=== PATIENT | female | born 1955 | race Caucasian/White ===

== ENCOUNTER 2017-06-04 09:55 | Day surgery (SDC) | payer BC ==
[2017-06-04] VITALS (13 sets, daily range): BP systolic 82–131; BP diastolic 50–74; PULSE 75–98; RESP 17–31; Ht 157.5 cm; Wt 84.0 kg
[~2017-06-04] VITALS: Ht 157.5 cm; Wt 84.0 kg
[2017-06-04 10:54] LABS: BASOPHILS % 0.3 % (0.0-2.0); EOSINOPHILS % 0.6 % (0.0-7.0); HEMATOCRIT 38.7 % (37.0-47.0); HEMOGLOBIN 13.1 g/dl (12.0-16.0); LYMPHOCYTES # 1.2 10^3/ul (0.8-2.9); LYMPHOCYTES % 17.3 % (15.0-51.0); MEAN CORPUSCULAR HEMOGLOBIN 32.6 pg (29.0-33.0); MEAN CORPUSCULAR HGB CONC 33.9 g/dl (32.0-37.0); MEAN CORPUSCULAR VOLUME 96.3 fl (82.0-101.0); MEAN PLATELET VOLUME 9.6 fl (7.4-10.4); MONOCYTE # 0.4 10^3/ul (0.3-0.9); MONOCYTES % 6.6 % (0.0-11.0); NEUTROPHILS % 74.9 % (39.0-77.0); PLATELET COUNT 256 10^3/UL (140-415); RED BLOOD COUNT 4.02 10^6/ul (4.20-5.40); RED CELL DISTRIBUTION WIDTH 12.2 % (11.5-14.5); WHITE BLOOD COUNT 6.7 10^3/ul (4.8-10.8)
--- NOTE | 2017-06-04 11:15 | RADRPT ---
PROCEDURE: XR Chest 1 View. CLINICAL INDICATION: Abnormal breath sounds, preop. TECHNIQUE: AP view of the chest was obtained. COMPARISON: None. FINDINGS: The heart size is within normal limits. Calcified atherosclerosis is noted in the aorta. Subsegment al atelectasis is noted in the bilateral lower lungs. No consolidations are identified. No pneumoth orax is seen. Surgical clips are identified in the bilateral axilla. The osseous structures appear intact. IMPRESSION: Calcified atherosclerosis in the aorta. Subsegmental atelectasis in the bilateral lower lungs. RPTAT: AA .Nestor Lala MD, Date Time Electronically viewed and signed by .Nestor Lala MD, on 06/04/2017 11:14 .P/
[2017-06-04 11:24] LABS: ALBUMIN 3.8 g/dl (3.3-4.9); ALBUMIN/GLOBULIN RATIO 1.08; BILIRUBIN,INDIRECT 0.4 mg/dl (0-1.1); BILIRUBIN,TOTAL 0.4 mg/dl (0.2-1.3); TOTAL PROTEIN 7.3 g/dl (6.1-8.1)
[2017-06-04] MEDS ORDERED: SOD CHLORIDE 0.9% 1,000 ML IV ONE (11:30)
[2017-06-04] MEDS ORDERED: CEFAZOLIN 1 GM/50 ML (PMX) 50 ML IVPB ONE (11:30)
[2017-06-04 11:32] LABS: CALCIUM 9.4 mg/dl (8.4-10.2); CREATININE 0.91 mg/dl (0.44-1.00); POTASSIUM 4.2 mmol/L (3.5-5.1)
[2017-06-04 11:49] LABS: INR 0.96; PROTIME 12.8 Sec (12.2-14.2)
[2017-06-04] MEDS ORDERED: LIDOCAINE 2% (SDV) 5 ML INJ ONE (11:52)
[2017-06-04] MEDS ORDERED: MIDAZOLAM 1 MG/ML 2 ML INJ ONE (11:52)
[2017-06-04] MEDS ORDERED: FENTAnyl 50 MCG/ML VIAL ONE (11:52)
[2017-06-04] MEDS ORDERED: PROPOFOL 20 ML ONE (11:52)
[2017-06-04] MEDS ORDERED: CEFAZOLIN 1 GM INJ ONE (11:52)
[2017-06-04] MEDS ORDERED: DIPHENHYDRAMINE 50 MG INJ IV PRN (12:30)
[2017-06-04] MEDS ORDERED: OXYCODONE/ACETAMINOPHEN (5/325) TAB PO PRN ×2 (12:30)
[2017-06-04] MEDS ORDERED: MEPERIDINE 25 MG INJ IV PRN (12:30)
[2017-06-04] MEDS ORDERED: ONDANSETRON 4 MG INJ IV PRN (12:30)
[2017-06-04] MEDS ORDERED: METOCLOPRAMIDE 10 MG INJ IV PRN (12:30)
[2017-06-04] MEDS ORDERED: FENTAnyl 50 MCG/ML VIAL IV PRN ×2 (12:30)
[2017-06-04] MEDS ORDERED: ONDANSETRON 4 MG INJ ONE (12:52)
[2017-06-04] MEDS ORDERED: METOCLOPRAMIDE 10 MG INJ ONE (12:52)
[2017-06-04] MEDS ORDERED: FAMOTIDINE 20 MG INJ ONE (12:53)
[2017-06-04] MEDS ORDERED: DEXAMETHASONE 4 MG/ML 1 ML INJ ONE (12:53)
[2017-06-04] MEDS ORDERED: EPHEDrine SULFATE 50 MG/5 ML SYG ONE (13:00)
--- NOTE | 2017-06-04 13:21 | SIPON ---
Date/Time of Note Date/Time of Note DATE: 06/04/17 TIME: 13:20 Operative Report Preoperative Diagnosis Left lateral thigh masses Postoperative Diagnosis Same Operation/Procedure Performed Resection of left lateral thigh masses 3 Surgeon see signature line assistant program manager Dr Barros Anesthesia: general Estimated blood loss: 10 - 50 ml's Transfusion Required none Specimen Left lateral thigh masses 3 Grafts/Implants none Complications none ERLIN HACKETT MD Jun 04, 2017 13:21
--- NOTE | 2017-06-04 13:23 | RADRPT ---
Vent Rate: 71 bpm RR Interval: 0 msec [place] Interval: 160 msec QRS Duration: 72 msec QT Interval: 412 msec QTC Interval: 447 msec P-R-T [place]: 66 - 26 - 54 degrees Normal sinus rhythm Low voltage QRS Nonspecific T wave abnormality Abnormal ECG Electronically Signed By: Ar Miller [id number]
--- NOTE | 2017-06-04 13:37 | OPR ---
DATE OF OPERATION: 06/04/2017 PREOPERATIVE DIAGNOSIS: Multiple left lateral thigh masses. INDICATIONS FOR PROCEDURE: The patient has a previous history of surgical excision of subcutaneous lipomas performed by another surgeon. She presented with multiple left lateral mid thigh masses con sistent with probable lipomas. The patient claimed that they were very symptomatic and requested ex cision. She consented and was scheduled for surgery. DESCRIPTION OF PROCEDURE: The patient was brought to the operating theater, placed under general an esthesia. The left thigh was prepped and draped in usual sterile fashion. Approximately 5 cm incis ion was made over the largest of the palpable masses with 15 blade scalpel. Subcutaneous tissue was dissected with cautery. A well circumscribed mass consistent with probable lipoma was identified. It was enucleated. More inferiorly in the wound, additional palpable well-circumscribed mass was i dentified. It was also enucleated and removed and then more superiorly in the wound, there was diff use lobulated fatty tissue, uncertain whether this represented a true lipoma. It was resected, dunlap jono, and sent separately for pathologic analysis. The wound was then irrigated. Minimal bleeding w as controlled with cautery, and the skin was then reapproximated with 2-0 nylon sutures in vertical mattress fashion. The patient tolerated procedure well. The estimated blood loss was approximately 20 mL. There were no complications and the patient was then transported in stable condition to the recovery room. Dictated By: ERLIN ELLIS/LYNETTE Conf#: [id number] DID#: [id number]
[2017-06-04] MEDS: FENTAnyl 50 MCG/ML VIAL IV PRN ×2 (13:46→14:01)
[2017-06-04] MEDS ORDERED: MIDAZOLAM 1 MG/ML 2 ML INJ IV PRN (14:00)
== END 2017-06-04 16:55 | disposition home or self-care (01) ==
LOC: SDS 09:55
PROVIDERS: ATTEND Surgery Surgical Oncology
DX: D17.24 Benign lipomatous neoplasm of skin and subcutaneous tissue of left leg (principal); E66.9 Obesity, unspecified; Z68.34 Body mass index [BMI] 34.0-34.9, adult
CPT/HCPCS: 27337; 71010; 80053; 85025; 85610; 85730; 88304; 88307; 93005; J0690; J1100; J2250; J2405; J2765; J3010; Z7512; Z7610

== ENCOUNTER 2018-02-02 07:29 | Inpatient (IN) | END 2018-02-04 18:10 | disposition home health service (06) | DRG 470 ==

== ENCOUNTER 2018-06-08 05:39 | Inpatient (IN) | END 2018-06-09 12:05 | disposition home health service (06) | DRG 470 ==